=== PATIENT | female | born 2005 | race Caucasian/White ===

== ENCOUNTER 2023-04-05 19:50 | Inpatient (IN) ==
[2023-04-05] MEDS ORDERED: SODIUM CHLORIDE 0.9% 1000ML 2,000 ML IV ONE (20:29)
--- NOTE | 2023-04-05 20:33 | Emergency Department Note ---
Impression & Plan Neck mass, Branchial cleft cyst ED Provider Note NAME: VAHID WELCH AGE: 17 SEX: F : 2005 ARRIVES VIA: Walk-In INFORMANT: Patient ED PROVIDER(S): Ernesto Stephens DO CHIEF COMPLAINT: right neck pain HPI: Patient is a 17-year-old female with no significant past medical history that presents the ER for swelling on the right side of the neck. This started 2 weeks ago. On Sunday she started having pain and swelling and got significantly worse. She denies any fevers. No headache or change in vision. No trouble swallowing. No cough or congestion. No chest pain or shortness of breath. No nausea, vomiting or diarrhea. No dysuria, urgency or frequency. No chills or night sweats. No weight loss. No other exacerbating or remitting factors. PAST MEDICAL HISTORY:See Below PAST SURGICAL HISTORY:See Below FAMILY HISTORY:See Below SOCIAL HISTORY:See Below HOME MEDICATIONS:See Below ALLERGIES:See Below VITALS:See Below PHYSICAL EXAMINATION: GENERAL: Sitting up in bed, alert, well appearing, well nourished, no distress, non-toxic EYE EXAM: normal conjunctiva. OROPHARYNX: no exudate, no erythema, lips, buccal mucosa, and tongue normal and mucous membranes are moist NECK: supple, no nuchal rigidity, large swelling on the right mid neck which is tender without surrounding erythema LUNGS: Clear to auscultation. Normal chest wall mechanics HEART: no murmurs, S1 normal and S2 normal ABDOMEN: abdomen soft, non-tender, normo-active bowel sounds, no masses, no rebound or guarding. BACK: Back is symmetrical on inspection and there is no deformity, no midline tenderness, no CVA tenderness. SKIN: no rashes and no bruising UPPER EXTREMITIES: upper extremities are grossly normal. LOWER EXTREMITIES: No pitting edema. NEURO EXAM: Normal sensorium, cranial nerves II-XII grossly intact, normal speech, no gross weakness of arms, no gross weakness of legs. MEDICAL DECISION MAKING: Patient is a 17-year-old female who presents ER for above-stated complaint. IV was established blood work was obtained. External records were reviewed. Labs show no significant leukocytosis or anemia. BMP along with LFTs bilirubin was negative. UA was unremarkable. COVID-negative. CT of the neck suggest a brachial cleft cyst with possible infection. Discussed this with ENT Dr. Barron recommended admission IV antibiotics and he will see in the morning. Discussed with Dr. Elmer Higuera for further evaluation and management and treatment. History was also obtained from patient's mother who was present at bedside. Triage Nursing notes reviewed. Limited review of prior medical records performed Vital Signs: reviewed and remarkable for no significant abnormalities Differential diagnosis: Cervical strain, fracture, cervical disc disease, lymphadenitis, meningitis, tumor, arterial dissection, thyroiditis, parotitis, mastoiditis, neurologic, cardiovascular, as well as other pathologies. ER treatment provided: See below Diagnostics interpreted by me include EKG and cardiac monitoring as listed below: -Cardiac Monitoring: An order was placed for continuous cardiac monitoring. The monitor shows a rate of 80 with sinus rhythm. -ECG: none -Laboratory studies:Interpreted by me as stated above in MDM and shown below. Imaging studies: Xrays: As interpreted by me:none CTs show: CT of the neck shows right neck mass. CT per radiology suggested brachial cleft cyst Consultation(s): As described in MDM Procedures:none Critical Care: None Past Med/Surg History Medical History Migraines Surgical History H/O excision of mass H/O wisdom tooth extraction History of lateral meniscus repair of left knee History of medial meniscus repair of left knee S/P ACL reconstruction Family History Aunt Breast cancer Grandmother Diabetes Heart disease Cancer Grandfather Diabetes Heart disease Cancer Grandfather (Maternal) Deep vein thrombosis Mother PONV (postoperative nausea and vomiting) Other Stroke Denies family history of Ovarian cancer Colorectal cancer Uterine cancer Social History Smoking Status: Never smoker Second Hand Exposure: No; Do You Dip or Chew Tobacco: No; Hx Alcohol Use: No Hx Substance Use: No Preferred Language: Japanese Communication Ability: Effective Senior Rd Engineer Required: No Beliefs That Will Affect Care: None marital status: Single Current Living Situation: Other Current Living Situation Comment: [employer] student. lives in dorm with 1 room mate (local to area) Feels Safe at Home: Yes Assistive Devices: Brace/Splint/Immobilizer Allergies Allergies Allergy/AdvReac Type Severity Reaction Status Date / Time amoxicillin Allergy Intermediate Hives Verified 04/05/23 21:11 Penicillins Allergy Intermediate Hives Verified 04/05/23 21:11 Home Meds Home Medications Medication Instructions Recorded Confirmed norethindrone 1 mg-ethinyl 1 tab PO HS 04/05/23 04/05/23 estradiol 20 mcg (24)-iron 75 mg (4) tablet (Arminda 24 Fe) Results & Data (ED) Vital Signs Vital Signs - 24 hr 04/05/23 20:01 Temperature 36.6 C Temperature Source Temporal Artery Scan Pulse Rate 88 Respiratory Rate 18 Blood Pressure 120/87 Blood Pressure Mean 98 Pulse Oximetry 98 Oxygen Delivery Method Room Air Sepsis Recent Fever Within 48 Hours No Sepsis New/Unexplained Change in Mental Status N/A Sepsis Action Taken by Nursing No Action Required Laboratory Data 04/05/23 20:22 04/05/23 20:22 Lab Results 04/05/23 04/05/23 04/05/23 Range/Units 20:22 20:22 20:22 WBC 7.95 (4.8-10.8) K/ul RBC 4.89 (4.20-5.40) M/uL Hgb 13.7 (12.0-16.0) g/dl Hct 41.5 (37.0-47.0) % MCV 84.9 (80.0-100.0) fL MCH 28.0 (25.0-34.0) pg MCHC 33.0 (32.0-36.0) g/dL RDW Std Deviation 40.3 (36.4-46.3) fL RDW Coeff of Rolf 13.1 (11.5-14.5) % Plt Count 275 (130-400) K/uL MPV 9.3 L (9.4-12.4) fL Immature Gran % (Auto) 0.3 % Neut % (Auto) 63.3 % Lymph % (Auto) 25.7 % [place] % (Auto) 7.4 % Eos % (Auto) 2.5 % Baso % (Auto) 0.8 % Neut # (Auto) 5.04 (1.40-6.50) K/uL Lymph # (Auto) 2.04 (1.2-3.4) K/uL [place] # (Auto) 0.59 (0.11-0.59) K/uL Eos # (Auto) 0.20 (0-0.50) K/uL Baso # (Auto) 0.06 (0-0.2) K/uL Immature Gran # (Auto) 0.02 (0.01-0.20) K/uL Sodium 139 (136-145) mmol/L Potassium 3.8 (3.5-5.1) mmol/L Chloride 102 (98-107) mmol/L Carbon Dioxide 28 (21-32) mmol/L Anion Gap 9 (3-11) BUN 12 (6-23) mg/dl Creatinine 0.80 (0.6-1.2) mg/dl Est Cr Clr Drug Dosing 113.0 ml/min Est GFR ( Amer) 123.9 ml/min Est GFR (Non-Af Amer) 106.9 ml/min BUN/Creatinine Ratio 15.0 (10-20) Glucose 73 (70-99(Fasting)) mg/dl Calcium 10.3 (8.6-10.3) mg/dl Total Bilirubin 1.3 H (0.2-1.0) mg/dl AST 16 (13-39) U/L ALT 7 (7-52) U/L Alkaline Phosphatase 70 (34-104) U/L Total Protein 8.6 H (6.0-8.3) gm/dl Albumin 4.7 (3.4-5.0) gm/dl Globulin 3.9 (2.5-4.0) gm/dl Albumin/Globulin Ratio 1.2 (0.9-2) Urine Color Dark Yellow Urine Appearance Clear (Clear) Urine pH 6.5 (4.5-7.5) Ur Specific Mears 1.024 (1.000-1.030) Urine Protein Trace H (Negative) Urine Glucose (UA) Negative (Negative) Urine Ketones Negative (Negative) Urine Blood Negative (Negative) Urine Nitrite Negative (Negative) Urine Bilirubin Negative (Negative) Urine Urobilinogen Negative (Negative) Ur Leukocyte Esterase Negative (Negative) Urine WBC (Auto) 1-5 (0-5) /hpf Urine RBC (Auto) 0-4 (0-4) /hpf U Hyaline Cast (Auto) 1-5 (0-5) /lpf U Epithel Cells (Auto) 20-30 H (0-5) /lpf Urine Bacteria (Auto) Negative (Negative) POC Ur Test (NEG) SARS-CoV-2, RNA, NAAT (NEGATIVE) 04/05/23 04/05/23 Range/Units 20:40 21:55 WBC (4.8-10.8) K/ul RBC (4.20-5.40) M/uL Hgb (12.0-16.0) g/dl Hct (37.0-47.0) % MCV (80.0-100.0) fL MCH (25.0-34.0) pg MCHC (32.0-36.0) g/dL RDW Std Deviation (36.4-46.3) fL RDW Coeff of Rolf (11.5-14.5) % Plt Count (130-400) K/uL MPV (9.4-12.4) fL Immature Gran % (Auto) % Neut % (Auto) % Lymph % (Auto) % [place] % (Auto) % Eos % (Auto) % Baso % (Auto) % Neut # (Auto) (1.40-6.50) K/uL Lymph # (Auto) (1.2-3.4) K/uL [place] # (Auto) (0.11-0.59) K/uL Eos # (Auto) (0-0.50) K/uL Baso # (Auto) (0-0.2) K/uL Immature Gran # (Auto) (0.01-0.20) K/uL Sodium (136-145) mmol/L Potassium (3.5-5.1) mmol/L Chloride (98-107) mmol/L Carbon Dioxide (21-32) mmol/L Anion Gap (3-11) BUN (6-23) mg/dl Creatinine (0.6-1.2) mg/dl Est Cr Clr Drug Dosing ml/min Est GFR ( Amer) ml/min Est GFR (Non-Af Amer) ml/min BUN/Creatinine Ratio (10-20) Glucose (70-99(Fasting)) mg/dl Calcium (8.6-10.3) mg/dl Total Bilirubin (0.2-1.0) mg/dl AST (13-39) U/L ALT (7-52) U/L Alkaline Phosphatase (34-104) U/L Total Protein (6.0-8.3) gm/dl Albumin (3.4-5.0) gm/dl Globulin (2.5-4.0) gm/dl Albumin/Globulin Ratio (0.9-2) Urine Color Urine Appearance (Clear) Urine pH (4.5-7.5) Ur Specific Mears (1.000-1.030) Urine Protein (Negative) Urine Glucose (UA) (Negative) Urine Ketones (Negative) Urine Blood (Negative) Urine Nitrite (Negative) Urine Bilirubin (Negative) Urine Urobilinogen (Negative) Ur Leukocyte Esterase (Negative) Urine WBC (Auto) (0-5) /hpf Urine RBC (Auto) (0-4) /hpf U Hyaline Cast (Auto) (0-5) /lpf U Epithel Cells (Auto) (0-5) /lpf Urine Bacteria (Auto) (Negative) POC Ur Test NEG (NEG) SARS-CoV-2, RNA, NAAT NEGATIVE (NEGATIVE) Administered Medications Dextrose/Sodium Chloride (D5w And Nss) 1,000 mls @ 80 mls/hr IV .[id number] PERFECTO Stop: 04/06/23 11:14 Last Admin: 04/06/23 00:30 Dose: 80 mls/hr Documented By: JORDON Discontinued Medications Sodium Chloride (Nss 1000ml) 2,000 mls @ 999 mls/hr IV .Q2H1M ONE Stop: 04/05/23 22:29 Last Infusion: 04/05/23 23:00 Dose: 0 mls/hr Documented By: Admin: 04/05/23 20:45 Dose: 999 mls/hr Documented By: ARISTIDES Clindamycin Phosphate (Cleocin/D5w) 600 mg in 50 mls @ 100 mls/hr IV NOW ONE Stop: 04/05/23 22:13 Last Infusion: 04/05/23 23:00 Dose: 0 mls/hr Documented By: Admin: 04/05/23 22:16 Dose: 100 mls/hr Documented By: ARISTIDES Ioversol (Optiray 320 100ml) 86 ml IV ONCE ONE Stop: 04/05/23 21:02 Last Admin: 04/05/23 21:01 Dose: 86 ml Documented By: ANGEL Imaging Data Radiologist's Impression: Soft Tissue Neck CT 04/05/23 20:29 Exam(s): CT NECK With Contrast IV Amt: 86 ml optiray 320 EXAM: CT Neck With Intravenous Contrast CLINICAL HISTORY: Reason for exam: ? Abscess r neck. TECHNIQUE: Axial computed tomography images of the neck with intravenous contrast. CTDI is 12.63 mGy and DLP is 319.8 mGy-cm. Automated exposure control was utilized for the study. A dose lowering technique was utilized adhering to the principles of ALARA. CONTRAST: Patient received 86 ml optiray 320 of IV contrast COMPARISON: No relevant prior studies available. FINDINGS: Oropharynx: Unremarkable. No significant tonsillar enlargement. No peritonsillar abscess. Hypopharynx: Unremarkable. Larynx: Unremarkable. Normal epiglottis. Trachea: Unremarkable. Retropharyngeal space: Unremarkable. Submandibular/parotid glands: Unremarkable. Glands are normal in size. Thyroid: Unremarkable. No enlarged or calcified nodules. Bones/joints: No acute fracture. 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 There is compression of the jugular vein which is demonstrated to be patent. Mild peripheral enhancement is nonspecific, cannot rule out underlying infection or abscess of the congenital cyst. Mild cellulitis extends into the inferior neck Vasculature: No acute findings. Lymph nodes: Mildly prominent right level 2 nodes are nonspecific, presumed reactive. Lung apices: Unremarkable as visualized. IMPRESSION: 1. 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 2. Presumed reactive right cervical lymphadenopathy. Electronically signed by: Yaritza Villegas M.D. 04/05/23 21:28 PM Discharge Plan Visit Data Chief Complaint: Referred by Doctor Stated Complaint: REFERRED BY DOC, CAT SCAN NEEDED ED Provider: Ernesto Stephens Discharge Problem: Neck mass, Branchial cleft cyst Patient Disposition: Admitted As Inpatient Discharge Instructions Interventions: ED Discharge Assessment Last Done: 04/05/23 23:28
[2023-04-05 20:47] LABS: Basophils # (auto) 0.06 K/uL (0-0.2); Basophils % (auto) 0.8 %; Eosinophils % (auto) 2.5 %; Hematocrit (blood only) 41.5 % (37.0-47.0); Hemoglobin 13.7 g/dl (12.0-16.0); Immature Granulocytes # (auto) 0.02 K/uL (0.01-0.20); Immature Granulocytes % (auto) 0.3 %; Lymphocytes # (auto) 2.04 K/uL (1.2-3.4); Lymphocytes % (auto) 25.7 %; Mean Corpuscular Volume 84.9 fL (80.0-100.0); Mean Platelet Volume 9.3 fL (9.4-12.4); Monocytes # (auto) 0.59 K/uL (0.11-0.59); Monocytes % (auto) 7.4 %; Neutrophils # (auto) 5.04 K/uL (1.40-6.50); Neutrophils % (auto) 63.3 %; Platelet Count 275 K/uL (130-400); RDW Coefficient of Variation 13.1 % (11.5-14.5); RDW Standard Deviation 40.3 fL (36.4-46.3); Red Blood Count 4.89 M/uL (4.20-5.40); White Blood Count 7.95 K/ul (4.8-10.8)
[2023-04-05 20:48] LABS: Appearance Urine Clear (Clear); Bacteria Urine Automated Negative (Negative); Bilirubin Urine Negative (Negative); Blood Urine Negative (Negative); Color Urine Dark Yellow; Epithelial Cell Urine Auto 20-30 /lpf (0-5); Glucose Urine UA Negative (Negative); Ketones Urine Negative (Negative); Leukocyte Esterase Urine Negative (Negative); Nitrite Urine Negative (Negative); Protein Urine Trace (Negative); RBC Urine Automated 0-4 /hpf (0-4); Specific Gravity Urine 1.024 (1.000-1.030); Urobilinogen Urine Negative (Negative); pH Urine 6.5 (4.5-7.5)
[2023-04-05] MEDS ORDERED: OPTIRAY 320 100ml IV ONE (21:01)
[2023-04-05 21:06] LABS: Albumin Globulin Ratio 1.2 (0.9-2); Albumin Level 4.7 gm/dl (3.4-5.0); Bilirubin,Total 1.3 mg/dl (0.2-1.0); Calcium 10.3 mg/dl (8.6-10.3); Est GFR (African American) 123.9 ml/min; Est GFR (Non-African American) 106.9 ml/min; Globulin 3.9 gm/dl (2.5-4.0); Potassium 3.8 mmol/L (3.5-5.1); Total Protein 8.6 gm/dl (6.0-8.3)
--- NOTE | 2023-04-05 21:29 | CT Scan Report ---
Exam(s): CT NECK With Contrast IV Amt: 86 ml optiray 320 EXAM: CT Neck With Intravenous Contrast CLINICAL HISTORY: Reason for exam: ? Abscess r neck. TECHNIQUE: Axial computed tomography images of the neck with intravenous contrast. CTDI is 12.63 mGy and DLP is 319.8 mGy-cm. Automated exposure control was utilized for the study. A dose lowering technique was utilized adhering to the principles of ALARA. CONTRAST: Patient received 86 ml optiray 320 of IV contrast COMPARISON: No relevant prior studies available. FINDINGS: Oropharynx: Unremarkable. No significant tonsillar enlargement. No peritonsillar abscess. Hypopharynx: Unremarkable. Larynx: Unremarkable. Normal epiglottis. Trachea: Unremarkable. Retropharyngeal space: Unremarkable. Submandibular/parotid glands: Unremarkable. Glands are normal in size. Thyroid: Unremarkable. No enlarged or calcified nodules. Bones/joints: No acute fracture. 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 There is compression of the jugular vein which is demonstrated to be patent. Mild peripheral enhancement is nonspecific, cannot rule out underlying infection or abscess of the congenital cyst. Mild cellulitis extends into the inferior neck Vasculature: No acute findings. Lymph nodes: Mildly prominent right level 2 nodes are nonspecific, presumed reactive. Lung apices: Unremarkable as visualized. IMPRESSION: 1. 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 2. Presumed reactive right cervical lymphadenopathy. Electronically signed by: Yaritza Villegas M.D. 04/05/23 21:28 PM
[2023-04-05] MEDS ORDERED: CLINDAMYCIN/D5W 600 MG/50 ML BAG IV ONE (21:44)
--- NOTE | 2023-04-05 22:22 | History & Physical Report ---
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 -received clindamycin in ED -continue clindamycin IV at this time -consulted ENT -WBC 7.96 -PRN tylenol for pain FENa: NPO midnight Code Status: Full DVT PPX: ambulatory Dispo: med/surg Jaimie Nash D.O. PGY 2, FCM History of Present Illness Chief Complaint: Right Neck Mass Primary Care Provider: Sheldon Mukherjee MD 17yo Female without significant PMH here for right sided neck mass. Patient stat es she noticed a small lump on her right neck last week nonpainful. By Sunday it was larger and more painful. Patient denies any SOB nausea fever difficulty swallowing pain elsewhere. Her neck bothers her when turning her head, sleeping, playing volleyball. She has been managing her pain with tylenol and advil. She saw her PCP today regarding her neck, they referred her to the ED. 1 month ago patient did have fever chills nausea on 03/14, went to [facility] was tested negative for strep and mono. Patient denies any family history, only surgery was left knee. Denies any alcohol smoking injectables. Patient has fear of needles would prefer to try antibiotic only treatment first. Allergies Allergy/AdvReac Type Severity Reaction Status Date / Time amoxicillin Allergy Intermediate Hives Verified 04/05/23 21:11 Penicillins Allergy Intermediate Hives Verified 04/05/23 21:11 Home Medications Medication Instructions Recorded Confirmed Type norethindrone 1 mg-ethinyl 1 tab PO HS 04/05/23 04/05/23 History estradiol 20 mcg (24)-iron 75 mg (4) tablet (Arminda 24 Fe) Past Med/Surg History Medical History Migraines Surgical History H/O excision of mass H/O wisdom tooth extraction History of lateral meniscus repair of left knee History of medial meniscus repair of left knee S/P ACL reconstruction Family History Aunt Breast cancer Grandmother Diabetes Heart disease Cancer Grandfather Diabetes Heart disease Cancer Grandfather (Maternal) Deep vein thrombosis Mother PONV (postoperative nausea and vomiting) Other Stroke Denies family history of Ovarian cancer Colorectal cancer Uterine cancer Social History Smoking Status: Never smoker Second Hand Exposure: No; Do You Dip or Chew Tobacco: No; Hx Alcohol Use: No Hx Substance Use: No Preferred Language: Namibian Communication Ability: Effective Manager Social Responsibility Required: No Beliefs That Will Affect Care: None marital status: Single Current Living Situation: Parent Current Living Situation Comment: PT NOW AT HOME WITH PARENTS FROM SCHOOL Feels Safe at Home: Yes Safety Concerns: Feels Safe At This Time Assistive Devices: None Physical Exam Constitutional: WD/WN, vitals as above Eyes: PERRL, conjunctivae normal, anicteric sclerae ENMT: external ear and nose normal, oropharynx normal Neck: firm mildly painful mass on right side on neck nonmobile Respiratory: normal respiratory effort Cardiovascular: RRR, no murmur, no edema Gastrointestinal (Abdomen): normal bowel sounds, soft, nontender, no hepatosplenomegaly Skin: no rashes, warm and dry Results & Data Results & Data Vital Signs (Past 12 Hours) Vital Signs Temp Pulse Resp BP Pulse Ox O2 Del Method 04/05/23 20:01 36.6 C 88 18 120/87 98 Room Air Supervising Physician Co-Signing Physician Notes Attending addendum: I have physically seen this patient, have supervised the medical residents activities, and agree with the H&P unless as otherwise noted. Assessment and Plan: Neck mass- ED physician discussed with ENT, who will see patient in a.m. CT suggest right-sided 3.5 x 2.6 x 2.2 cm mass second branchial cleft cyst with possible underlying infection/abscess Continue clindamycin 600 mg IV every 8 hours begun in the ED, notation of penicillin allergy causing hives N.p.o. IV fluids Pain regimen as noted Remaining orders and notations as noted Resident Activity Tracking Resident Involvement: Resident Care Provided Care Provided: Adult Hospital Medicine
[2023-04-05] MEDS ORDERED: D5W AND NSS 1,000 ML IV SCH (22:45)
[2023-04-06] MEDS ORDERED: POLYETHYLENE (MIRALAX) 17 GM PACK PO PRN (00:45)
[2023-04-06] MEDS ORDERED: ACETAMINOPHEN 325 MG TAB PO PRN (00:45)
[2023-04-06] MEDS: CLINDAMYCIN/D5W 600 MG/50 ML BAG IV SCH ×3 (05:47→21:19)
[2023-04-06] MEDS: ADVANCED PROBIOTIC 1250 MG CAPSULE PO SCH (09:59)
[2023-04-06 11:32] LABS: Hematocrit (blood only) 38.2 % (37.0-47.0); Hemoglobin 12.7 g/dl (12.0-16.0); Mean Corpuscular Hemoglobin 28.2 pg (25.0-34.0); Mean Corpuscular Hgb Conc 33.2 g/dL (32.0-36.0); Mean Corpuscular Volume 84.9 fL (80.0-100.0); Mean Platelet Volume 9.5 fL (9.4-12.4); Platelet Count 232 K/uL (130-400); RDW Coefficient of Variation 13.2 % (11.5-14.5); RDW Standard Deviation 40.8 fL (36.4-46.3); White Blood Count 6.27 K/ul (4.8-10.8)
[2023-04-06 11:50] LABS: Anion Gap 4 (3-11); BUN Creatinine Ratio 11.7 (10-20); Blood Urea Nitrogen 7 mg/dl (6-23); Calcium 8.7 mg/dl (8.6-10.3); Carbon Dioxide 27 mmol/L (21-32); Chloride 109 mmol/L (98-107); Creatinine Clr Calc Pharmacy 152.1 ml/min; Est GFR (African American) > 150.0 ml/min; Est GFR (Non-African American) 132.1 ml/min; Glucose 95 mg/dl (70-99(Fasting)); Potassium 4.3 mmol/L (3.5-5.1); Sodium 140 mmol/L (136-145)
--- NOTE | 2023-04-06 19:09 | Hospitalist Progress Note ---
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 stable, afebrile, nontoxic from this process. cont clindamycin IV. lactinex. schedule toradol 30mg IV x 3 doses for pain relief. schedule tylenol 1gm TID for pain relief. ENT evaluation pending. pt's mother had called into the room during my visit - she was updated. Plan DVT proph - low risk, defer on chemical means at this time Admission and Anticipated Discharge Date Admission Date: April 05, 2023 Subjective patient feels that the cyst/abscess on right neck might be slightly less swollen than yesterday no fevers able to swallow comfortably no diarrhea Review of Systems Review of Systems: gen - no fevers/chills pulm - no dyspnea Physical Exam Physical Exam: gen - WD, WN, NAD mouth - MMM neck - right neck, just anterior of the SCM below angle of the jaw, is a 3cm x 2cm mass - firm, mildly tender to palpation; no drainage, no erythema; shotty lymph nodes right neck heart - RRR, s1 s2, no murmur lungs - CTA b/l abd - soft NT ND BS+ ext - no edema, pulses 2+ b/l Results & Data Results & Data Vital Signs (Past 12 Hours) Vital Signs Temp Pulse Resp BP Pulse Ox O2 Del Method 04/06/23 15:19 37.0 C 92 H 18 118/75 Room Air 04/06/23 10:58 36.8 C 88 16 129/76 98 Room Air Laboratory Results Laboratory Results - last 24 hr 04/05/23 04/05/23 04/05/23 20:22 20:22 20:22 WBC 7.95 RBC 4.89 Hgb 13.7 Hct 41.5 MCV 84.9 MCH 28.0 MCHC 33.0 RDW Std Deviation 40.3 RDW Coeff of Rolf 13.1 Plt Count 275 MPV 9.3 L Immature Gran % (Auto) 0.3 Neut % (Auto) 63.3 Lymph % (Auto) 25.7 Addison % (Auto) 7.4 Eos % (Auto) 2.5 Baso % (Auto) 0.8 Neut # (Auto) 5.04 Lymph # (Auto) 2.04 Addison # (Auto) 0.59 Eos # (Auto) 0.20 Baso # (Auto) 0.06 Immature Gran # (Auto) 0.02 Sodium 139 Potassium 3.8 Chloride 102 Carbon Dioxide 28 Anion Gap 9 BUN 12 Creatinine 0.80 Est Cr Clr Drug Dosing 113.0 Est GFR ( Amer) 123.9 Est GFR (Non-Af Amer) 106.9 BUN/Creatinine Ratio 15.0 Glucose 73 Calcium 10.3 Total Bilirubin 1.3 H AST 16 ALT 7 Alkaline Phosphatase 70 Total Protein 8.6 H Albumin 4.7 Globulin 3.9 Albumin/Globulin Ratio 1.2 Urine Color Dark Yellow Urine Appearance Clear Urine pH 6.5 Ur Specific [place] 1.024 Urine Protein Trace H Urine Glucose (UA) Negative Urine Ketones Negative Urine Blood Negative Urine Nitrite Negative Urine Bilirubin Negative Urine Urobilinogen Negative Ur Leukocyte Esterase Negative Urine WBC (Auto) 1-5 Urine RBC (Auto) 0-4 U Hyaline Cast (Auto) 1-5 U Epithel Cells (Auto) 20-30 H Urine Bacteria (Auto) Negative POC Ur Test SARS-CoV-2, RNA, NAAT 04/05/23 04/05/23 04/06/23 20:40 21:55 10:50 WBC 6.27 RBC 4.50 Hgb 12.7 Hct 38.2 MCV 84.9 MCH 28.2 MCHC 33.2 RDW Std Deviation 40.8 RDW Coeff of Rolf 13.2 Plt Count 232 MPV 9.5 Immature Gran % (Auto) Neut % (Auto) Lymph % (Auto) Addison % (Auto) Eos % (Auto) Baso % (Auto) Neut # (Auto) Lymph # (Auto) Addison # (Auto) Eos # (Auto) Baso # (Auto) Immature Gran # (Auto) Sodium Potassium Chloride Carbon Dioxide Anion Gap BUN Creatinine Est Cr Clr Drug Dosing Est GFR ( Amer) Est GFR (Non-Af Amer) BUN/Creatinine Ratio Glucose Calcium Total Bilirubin AST ALT Alkaline Phosphatase Total Protein Albumin Globulin Albumin/Globulin Ratio Urine Color Urine Appearance Urine pH Ur Specific [place] Urine Protein Urine Glucose (UA) Urine Ketones Urine Blood Urine Nitrite Urine Bilirubin Urine Urobilinogen Ur Leukocyte Esterase Urine WBC (Auto) Urine RBC (Auto) U Hyaline Cast (Auto) U Epithel Cells (Auto) Urine Bacteria (Auto) POC Ur Test NEG SARS-CoV-2, RNA, NAAT NEGATIVE 04/06/23 10:50 WBC RBC Hgb Hct MCV MCH MCHC RDW Std Deviation RDW Coeff of Rolf Plt Count MPV Immature Gran % (Auto) Neut % (Auto) Lymph % (Auto) Addison % (Auto) Eos % (Auto) Baso % (Auto) Neut # (Auto) Lymph # (Auto) Addison # (Auto) Eos # (Auto) Baso # (Auto) Immature Gran # (Auto) Sodium 140 Potassium 4.3 Chloride 109 H Carbon Dioxide 27 Anion Gap 4 BUN 7 Creatinine 0.60 Est Cr Clr Drug Dosing 152.1 Est GFR ( Amer) > 150.0 Est GFR (Non-Af Amer) 132.1 BUN/Creatinine Ratio 11.7 Glucose 95 Calcium 8.7 Total Bilirubin AST ALT Alkaline Phosphatase Total Protein Albumin Globulin Albumin/Globulin Ratio Urine Color Urine Appearance Urine pH Ur Specific [place] Urine Protein Urine Glucose (UA) Urine Ketones Urine Blood Urine Nitrite Urine Bilirubin Urine Urobilinogen Ur Leukocyte Esterase Urine WBC (Auto) Urine RBC (Auto) U Hyaline Cast (Auto) U Epithel Cells (Auto) Urine Bacteria (Auto) POC Ur Test SARS-CoV-2, RNA, NAAT Diagnostic Findings Soft Tissue Neck CT 04/05/23 20:29 Exam(s): CT NECK With Contrast IV Amt: 86 ml optiray 320 EXAM: CT Neck With Intravenous Contrast CLINICAL HISTORY: Reason for exam: ? Abscess r neck. TECHNIQUE: Axial computed tomography images of the neck with intravenous contrast. CTDI is 12.63 mGy and DLP is 319.8 mGy-cm. Automated exposure control was utilized for the study. A dose lowering technique was utilized adhering to the principles of ALARA. CONTRAST: Patient received 86 ml optiray 320 of IV contrast COMPARISON: No relevant prior studies available. FINDINGS: Oropharynx: Unremarkable. No significant tonsillar enlargement. No peritonsillar abscess. Hypopharynx: Unremarkable. Larynx: Unremarkable. Normal epiglottis. Trachea: Unremarkable. Retropharyngeal space: Unremarkable. Submandibular/parotid glands: Unremarkable. Glands are normal in size. Thyroid: Unremarkable. No enlarged or calcified nodules. Bones/joints: No acute fracture. 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 There is compression of the jugular vein which is demonstrated to be patent. Mild peripheral enhancement is nonspecific, cannot rule out underlying infection or abscess of the congenital cyst. Mild cellulitis extends into the inferior neck Vasculature: No acute findings. Lymph nodes: Mildly prominent right level 2 nodes are nonspecific, presumed reactive. Lung apices: Unremarkable as visualized. IMPRESSION: 1. 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 2. Presumed reactive right cervical lymphadenopathy. Electronically signed by: Yaritza Villegas M.D. 04/05/23 21:28 PM PG Care Time/CCT Total # of Minutes Spent Total Time Spent with Patient: Total time spent is greater than 50% in coordination of care (as documented) at patient's floor/unit and/or counseling patient: Coding Level of Care Code 83545 SUB INP/OBS CARE 1/25MIN Diagnoses Branchial cleft cyst Q18.0
[2023-04-06] MEDS: KETOROLAC 30 MG/ML VIAL IV SCH ×2 (19:26→23:51)
[2023-04-06] MEDS: ACETAMINOPHEN 500 MG TAB PO SCH (21:19)
--- NOTE | 2023-04-06 23:21 | Billing Data ---
Date of Service April 06, 2023 Coding Level of Care Code 61028 INT INP/OBS CARE
--- NOTE | 2023-04-07 00:28 | Electrocardiogram Report ---
Test Reason : Blood Pressure : / mmHG Vent. Rate : 078 BPM Atrial Rate : 078 BPM P-R Int : 142 ms QRS Dur : 102 ms QT Int : 408 ms P-R-T Axes : 076 093 073 degrees QTc Int : 465 ms Normal sinus rhythm Rightward axis Borderline ECG No previous ECGs available Confirmed by Marcin Tolbert ([id number]) on 04/07/2023 12:28:11 AM Referred By: REFERRED SELF Confirmed By:Marcin Tolbert
[2023-04-07] MEDS: CLINDAMYCIN/D5W 600 MG/50 ML BAG IV SCH ×3 (06:02→21:22)
[2023-04-07] MEDS: KETOROLAC 30 MG/ML VIAL IV SCH (06:02)
[2023-04-07] MEDS: ADVANCED PROBIOTIC 1250 MG CAPSULE PO SCH (07:34)
[2023-04-07] MEDS: ACETAMINOPHEN 500 MG TAB PO SCH ×3 (07:34→21:22)
[2023-04-07] MEDS: FAMOTIDINE 20 MG TAB PO SCH ×2 (09:38→21:22)
[2023-04-07] MEDS: dexAMETHasone 4 MG in SYRINGE 0 ML IV SCH ×2 (09:38→21:22)
[2023-04-07 09:48] LABS: Bilirubin Direct 0.2 mg/dl (0-0.2); Creatinine Clr Calc Pharmacy 123.4 ml/min; Est GFR (African American) 136.1 ml/min; Est GFR (Non-African American) 117.4 ml/min
[2023-04-07 09:57] LABS: Hematocrit (blood only) 39.4 % (37.0-47.0); Hemoglobin 12.6 g/dl (12.0-16.0); Mean Corpuscular Hemoglobin 27.9 pg (25.0-34.0); Mean Corpuscular Volume 87.2 fL (80.0-100.0); Mean Platelet Volume 9.4 fL (9.4-12.4); Platelet Count 219 K/uL (130-400); RDW Coefficient of Variation 13.2 % (11.5-14.5); RDW Standard Deviation 41.9 fL (36.4-46.3); Red Blood Count 4.52 M/uL (4.20-5.40); White Blood Count 4.74 K/ul (4.8-10.8)
--- NOTE | 2023-04-07 19:13 | Hospitalist Progress Note ---
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 appreciate ENT evaluation. also in differential at this time is that the cyst is filled with blood. patient was given option of continuing antibiotics with steroids vs FNA of the cystic mass. she would prefer to avoid aspiration at this time. thus, cont clindamycin; add dexamethasone 4mg IV BID. add pepcid 20mg BID for GI prophylaxis given the steroid & recent nsaid use. cont probiotics. cont scheduled tylenol 1gm TID for pain relief. serial exams. (2) Total bilirubin, elevated: Plan: t.bili was elevated in 2021, and was mildly elevated at time of this admission. the bili has normalized today. direct bilirubin was normal. this may represent Gilbert's syndrome which does not require any treatment. in the future check additional t.bili levels to secure the diagnosis. Plan DVT proph - low risk, defer on chemical means at this time Admission and Anticipated Discharge Date Admission Date: April 07, 2023 Subjective no events overnight ENT saw patient in consult last evening advised either abx/steroids vs FNA as there is some concern that the mass could be blood-filled she would prefer to avoid FNA at this time eating well no diarrhea pain in right neck is much improved today not tender any longer she is uncertain if the size of the cyst has decreased in size Review of Systems Review of Systems: gen - no fevers or chills HENT - no dysphagia cv - no chest pain pulm - no dyspnea GI - no diarrhea Physical Exam Physical Exam: gen - WD, WN, NAD mouth - MMM neck - right neck, just anterior of the SCM below angle of the jaw, is a firm neck mass - it may be slightly smaller than yesterday; there is no tenderness to palpation today; no drainage; no overlying erythema; shotty lymph nodes right neck still present heart - RRR, s1 s2, no murmur lungs - CTA b/l abd - soft NT ND BS+ ext - no edema, pulses 2+ b/l Results & Data Results & Data Vital Signs (Past 12 Hours) Vital Signs Temp Pulse Resp BP Pulse Ox O2 Del Method 04/07/23 15:30 36.4 C L 65 16 132/81 96 Room Air 04/07/23 07:38 Room Air 04/07/23 07:32 36.4 C L 57 L 16 112/69 98 Room Air Laboratory Results Laboratory Results - last 24 hr 04/07/23 04/07/23 09:08 09:08 WBC 4.74 L RBC 4.52 Hgb 12.6 Hct 39.4 MCV 87.2 MCH 27.9 MCHC 32.0 RDW Std Deviation 41.9 RDW Coeff of Rolf 13.2 Plt Count 219 MPV 9.4 Creatinine 0.74 Est Cr Clr Drug Dosing 123.4 Est GFR ( Amer) 136.1 Est GFR (Non-Af Amer) 117.4 Total Bilirubin 1.0 Direct Bilirubin 0.2 PG Care Time/CCT Total # of Minutes Spent Total Time Spent with Patient: Total time spent is greater than 50% in coordination of care (as documented) at patient's floor/unit and/or counseling patient: Coding Level of Care Code 49474 SUB INP/OBS CARE 1/25MIN Diagnoses Branchial cleft cyst Q18.0 Total bilirubin, elevated R17
[2023-04-08] MEDS: CLINDAMYCIN/D5W 600 MG/50 ML BAG IV SCH ×2 (05:07→13:38)
[2023-04-08] MEDS: ACETAMINOPHEN 500 MG TAB PO SCH ×2 (08:38→13:38)
[2023-04-08] MEDS: dexAMETHasone 4 MG in SYRINGE 0 ML IV SCH (08:38)
[2023-04-08] MEDS: FAMOTIDINE 20 MG TAB PO SCH (08:39)
[2023-04-08] MEDS: ADVANCED PROBIOTIC 1250 MG CAPSULE PO SCH (08:39)
[2023-04-08] MEDS ORDERED: dexAMETHasone 1 MG TAB PO ONE (12:58)
--- NOTE | 2023-04-08 13:32 | Discharge Summary ---
Date of Service April 08, 2023 Admission HPI Per Admitting Provider 17yo Female without significant PMH here for right sided neck mass. Patient states she noticed a small lump on her right neck last week nonpainful. By Sunday it was larger and more painful. Patient denies any SOB nausea fever difficulty swallowing pain elsewhere. Her neck bothers her when turning her head, sleeping, playing volleyball. She has been managing her pain with tylenol and advil. She saw her PCP today regarding her neck, they referred her to the ED. 1 month ago patient did have fever chills nausea on 03/14, went to [facility] was tested negative for strep and mono. Patient denies any family history, only surgery was left knee. Denies any alcohol smoking injectables. Patient has fear of needles would prefer to try antibiotic only treatment first. Discharge Exam gen - WD, WN, NAD mouth - MMM neck - right neck, just anterior of the SCM below angle of the jaw, is a firm neck mass - it may be slightly smaller than yesterday; there is no tenderness to palpation today; no drainage; no overlying erythema; shotty lymph nodes right neck still present heart - RRR, s1 s2, no murmur lungs - CTA b/l abd - soft NT ND BS+ ext - no edema, pulses 2+ b/l Discharge Data Allergies Allergy/AdvReac Type Severity Reaction Status Date / Time amoxicillin Allergy Intermediate Hives Verified 04/05/23 21:11 Penicillins Allergy Intermediate Hives Verified 04/05/23 21:11 Consultations 04/05/23 21:44 ED Decision to Admit Stat 04/05/23 22:20 Consult Otolaryngology (Head and Neck) Routine Ordered Studies 04/05/23 20:29 CT soft tissue neck w con Stat Hospital Course (1) Branchial cleft cyst: right side, with presumed element of infection/possible abscess based on CT findings. appreciate ENT evaluation. also in differential at this time is that the cyst is filled with blood. patient was given option of continuing antibiotics with steroids vs FNA of the cystic mass. she would prefer to avoid aspiration at this time. thus, cont clindamycin; add dexamethasone 4mg IV BID. add pepcid 20mg BID for GI prophylaxis given the steroid & recent nsaid use. cont probiotics. cont scheduled tylenol 1gm TID for pain relief. serial exams. (2) Total bilirubin, elevated: t.bili was elevated in 2021, and was mildly elevated at time of this admission. the bili has normalized today. direct bilirubin was normal. this may represent Gilbert's syndrome which does not require any treatment. in the future check additional t.bili levels to secure the diagnosis. Plan DVT proph - low risk, defer on chemical means at this time Discharge Plan Discharge Items Patient Disposition: Home - Self-Care Reason For Visit: RIGHT SIDED BRANCHIAL CLEFT CYST WITH INFECTION Discharge Diagnosis: 1. Right sided branchial cleft cyst with infection - improving 2. Minimally elevated total bilirubin level - Gilbert's syndrome? Activity: As commented below Activity Comment: light activities only until you see Dr Barron later this week Lifting: No more than 10 pounds Bathing: No limitations Exercise/Sports: Wait until after follow-up appointment Driving/Machine Use: No limitations Non-emergency contact: Primary Care Provider and Surgeon Call non-emergency contact if: you have any medication questions, your symptoms worsen, your pain is not controlled, your pain is worsening and you have a fever Follow-up/Referrals: Sheldon Mukherjee MD [Primary Care Provider] - (1-2 weeks) Ry Barron MD [Physician] - (see Dr Barron THIS WEEK for recheck of branchial cleft cyst; we can help set up an appointment for you - our gold leaf layer can do this when the offices open tomorrow ) Diet: Regular Addtl Attending Provider Instructions: Ms Vilchis, Payam were hospitalized due to a right-sided neck mass. CT scan of the neck showed you have a branchial cleft cyst (see handout). This cyst is something that you were born with. The cyst grew in size either due to infection and/or bleeding into the cyst. The mass improved with IV antibiotics and IV steroids. Dr Ry Barron from ENT saw you in consult and was pleased with your progress during the stay. A course of oral antibiotics and oral steroids will be prescribed for you at home. Dr Barron will see you in his office THIS WEEK to recheck the branchial cyst. Ultimately the cyst will need removal in the future. Incidentally your bilirubin level (substance made by your liver) was minimally elevated. You also had a minimally elevated bilirubin level in 2021. If on routine blood work you continue to have mild elevations of bilirubin in the future you may have a condition called "Gilbert's syndrome." About 5% of the population have this. The condition does not cause harm nor require any treatment. Dr Mukherjee can recheck your level sometime in the future. Finally, you have a slight heart murmur on examination. Simply follow-up with Dr Mukherjee for this. Recommendations - 1. Antibiotics - * Clindamycin 300mg four times daily x 7 days, first dose later tonight; you have already received your other doses for today at [facility] before you were discharged * This antibiotic can cause diarrhea. While on the antibiotics please - * take an rlko-gdr-wvizupe probiotic supplement daily; these are in the vitamin section at [employer], etc * eat 1-2 servings of yogurt daily over the next 7-10 days * Know that the antibiotics can render your oral control pill ineffective until the time of your next menstrual cycle (meaning the control pill may not protect you against if sexually active) 2. Steroids - * Dexamethasone 6mg once daily x 5 days, first dose on Sunday04/09/23 * take with food 3. Pain control - * Qdjj-lln-jylnhaa tylenol (acetaminophen) 1000mg every 6 hours as needed for pain, maximum dose 3000mg in 24 hours * since you will be on steroids please avoid naprosyn/alleve/motrin/aspirin/ibuprofen for now 4. To help prevent stomach upset from the steroids take uyyp-icy-rrhoqrk famotidine (pepcid) 20mg twice daily for 5 days. Follow-up - see Dr Barron THIS WEEK in the ENT clinic with [facility] Return to [facility] if - * you have worsening pain, swelling, redness, etc over the right neck branchial cleft cyst * you develop severe diarrhea from your antibiotics * your pain is not controlled * any other concerns It was our pleasure to care for you! -Dr Rivera Pending Studies at Discharge: No Stand-Alone Forms: My [employer], Smoking Cessation Medications and DC Order Prescriptions: New acetaminophen [Tylenol Extra Strength] 500 mg Tablet 1,000 mg PO Q6H PRN (Reason: pain) Qty: 1 0RF Rx Instructions: purchase mqyd-xyq-fwpmffs famotidine 20 mg Tablet 20 mg PO BID 5 Days Qty: 10 0RF Rx Instructions: purchase ipnj-kao-mibssic dexamethasone 6 mg tablet 6 mg PO DAILY 5 Days Qty: 5 0RF Rx Instructions: start 04/09/23; take with food clindamycin HCl 300 mg capsule 300 mg PO Q6H 7 Days Qty: 28 0RF Rx Instructions: start Today, 04/08/23 Continued Arminda 24 Fe 1 mg-20 mcg (24)/75 mg (4) tablet 1 tab PO HS Discharge Orders: Discharge Order (Routine); Ordered 04/08/23 Ordered By: Tyson Rivera Admission Data Admit Date/Time: 04/07/23 08:06 Attending Provider: Tyson Rivera Admit Provider: Jaimie Nash Primary Care Provider: Sheldon Mukherjee Other Providers: Ry Barron ; Elmer Higuera Other Interventions: Discharge Summary Assessment (RN) Last Done: 04/08/23 13:23 Coding Diagnoses Branchial cleft cyst Q18.0 Total bilirubin, elevated R17
--- NOTE | 2023-04-09 14:20 | ENT Consultation ---
Date of Consultation April 09, 2023 Assessment & Plan (1) Branchial cleft cyst: Patient has a branchial cleft cyst on the right side. There is no erythema of the skin overlying the cyst. Her white count is not elevated. Either the cyst has become infected or there has been bleeding into the cyst. She has been on antibiotics and there has been some improvement. She will remain on IV antibiotics and steroids. After the swelling has settled down somewhat I will bring her back and do a right brachial cleft cyst resection in the operating room. History of Present Illness Reason for Consultation: Right neck mass Attending Physician: Tyson Rivera MD History of Present Illness Patient is a 17-year-old woman who presents with a history of mass in the right side of her neck. It started about a week ago and has increased in size. There is pain associate with this. She has no difficulty swallowing. She has no breathing problems. She has not had problems with like this in the past. She has no other lumps or bumps. She has no fever. Apparently the patient did have a lump beneath her chin in the past which was resected. Apparently it was a small cyst Allergies Allergy/AdvReac Type Severity Reaction Status Date / Time amoxicillin Allergy Intermediate Hives Verified 04/05/23 21:11 Penicillins Allergy Intermediate Hives Verified 04/05/23 21:11 Home Medications Medication Instructions Recorded Confirmed Type norethindrone 1 mg-ethinyl 1 tab PO HS 04/05/23 04/05/23 History estradiol 20 mcg (24)-iron 75 mg (4) tablet (Arminda 24 Fe) acetaminophen 500 mg tablet 1,000 mg PO Q6H PRN pain #1 tab 04/08/23 Rx (Tylenol Extra Strength) clindamycin HCl 300 mg capsule 300 mg PO Q6H 7 days #28 caps 04/08/23 Rx dexamethasone 6 mg tablet 6 mg PO DAILY 5 days #5 tabs 04/08/23 Rx famotidine 20 mg tablet 20 mg PO BID 5 days #10 tabs 04/08/23 Rx Patient History Medical History Migraines Surgical History H/O excision of mass H/O wisdom tooth extraction History of lateral meniscus repair of left knee History of medial meniscus repair of left knee S/P ACL reconstruction Family History Aunt Breast cancer Grandmother Diabetes Heart disease Cancer Grandfather Diabetes Heart disease Cancer Grandfather (Maternal) Deep vein thrombosis Mother PONV (postoperative nausea and vomiting) Other Stroke Denies family history of Ovarian cancer Colorectal cancer Uterine cancer Social History Smoking Status: Never smoker Second Hand Exposure: No; Do You Dip or Chew Tobacco: No; Hx Alcohol Use: No Hx Substance Use: No Preferred Language: Nauruan Communication Ability: Effective [employer] Manager Required: No Beliefs That Will Affect Care: None marital status: Single Current Living Situation: Parent Current Living Situation Comment: PT NOW AT HOME WITH PARENTS FROM SCHOOL Feels Safe at Home: Yes Assistive Devices: None Review of Systems Review of Systems: Ear: No notable skin lesions. No itching or pain. No drainageor swelling. No hearing loss or tinnitus. No dizziness. No family history of hearing loss or vertigo. No history of recurrent otitis media. No history of swimmers ear. No history of loud noise exposure or ear trauma. Nose and sinuses: No history of nasal obstruction or congestion. No history of nasal discharge or epistaxis. No complaints of dryness or crusting. No facial or dental pain or pressure. No numbness or swelling of the face. No visual changes. No sneezing or itching of the eyes or nose. No known environmental allergies. No family history of allergies. No history of nasal trauma or surgery No history of nasal spray use. Mouth: Patient has no problems with lip skin or mucosa. There is no swelling or pain in the mouth. Patient has no dental problems. There is no swelling, tumors or bleeding from the mouth. Patient has no sore throat or history of throat infections. Throat: Patient has no difficulty with swallowing. There is no dryness of the throat. Patient has no throat clearing and no history of heartburn. There are no changes in the voice or cough. The patient has not had previous throat surgery. Physical Exam Physical Exam: General appearance: Patient is alert, appropriately oriented and in no obvious distress with regard to breathing. Ears: Examination of the auricle, pinnae, conchae, tragus, and lobule skin and cartilage was normal. External auditiory canal bony and cartilaginous portions normal with no inflammation or discharge. Tympanic membrane normal. Middle ear space aerated with no fluid. Nose: Examination of the skin overlying the dorsum of the nose is normal. The vestibule is normal and the columella is straight. No nasal valve collapse. Nasal septum is straight. There is normal nasal mucosa with no evidence of polypoid tissue. Oral: Normal lip skin and mucosa. Lingual mucosa is normal. Floor of mouth normal. Buccal mucosa normal. Teeth are normal. Oropharynx: Normal examination, tonsil size 1, Freidman palate position 2. Posterior pharyngeal wall normal. Normal base of tongue, lateral pharyngeal wall, valleculae and epiglottis. Larynx and hypopharynx: Normal aryepiglottic folds and postcricoid area. Normal false cords and ventricles. Normal true cords mucosa and movement. Normal subglottis. No tumors, polyps or leukoplakia Neck: No skin lesions. Patient has a mass beneath the sternocleidomastoid muscle on the right side which measures 3 x 4 cm and is tender and firm, no thyroid enlargement, tenderness or masses. Temporomandibular joint []. PG Care Time/CCT Total # of Minutes Spent Total Time Spent with Patient: Total time spent is greater than 50% in coordination of care (as documented) at patient's floor/unit and/or counseling patient: Coding Level of Care Code 16111 IN/OBS CONSULT LVL 3,45M Diagnoses Branchial cleft cyst Q18.0
== END 2023-04-08 14:38 | disposition home or self-care (01) | DRG 155 ==
LOC: ED 19:50 → 3E 19:50 → SUATTDRO 22:13 → 3E 23:28